=== PATIENT | female | born 1985 | race Caucasian/White ===

== ENCOUNTER 2023-08-10 18:36 | Inpatient (IN) | payer BC ==
--- OUTSIDE RECORDS SUMMARY | 2023-08-10 18:40 | XMS REPORT | Continuity of Care Document ---
Author Name Unknown Address [address] [facility] [address] th[address] Address [address] [facility] [address] [place] [address] Care Team Providers Care Clerk Of [address] Court Name Role Phone [email or web address] Attending Clinician Unavaila ble [email or web address]_S Admitting Clinician Unavaila ble Payers Payer Name Policy Type Policy Number Effective Date Expirati on Date Source [place] [id number] 2021 00:00:00 Encounters Start Date/Time End Date/Time Encounter Type Admission Type Attending Clinicians Care Facility Care Department Encounter ID Source 2023-08-10 00:00:00 2023-08-10 00:00:00 Outpatient GC_[email or web address] diyala_S PRIV PRIV [id number] [facility] 2023-08-05 00:00:00 2023-08-05 00:00:00 Outpatient GC_[email or web address]_Ka diyala_S PRIV PRIV [id number] [facility] 2023-02-15 00:00:00 2023-02-15 00:00:00 Outpatient [email or web address] diyala_S PRIV PRIV [id number] [facility]
--- NOTE | 2023-08-10 19:48 | RAD REPORT ---
EXAM DESCRIPTION: US - Abdomen Exam Limited - 08/10/2023 7:28 pm CLINICAL HISTORY: ABD PAIN COMPARISON: ABDOMINAL EXAM LIMITED dated 09/17/2008 FINDINGS: The gallbladder demonstrates multiple shadowing stones. No pericholecystic fluid or gallbl adder wall thickening. The common bile duct is normal measuring 3 mm. The liver demonstrates no findings of intrahepatic biliary dilatation. IMPRESSION: Cholelithiasis.
[2023-08-10 19:55] LABS: Absolute Lymphocytes (CBC) 0.8 K/uL (0.7-4.9); Hematocrit 42.1 % (36.0-45.0); Lymphocytes % 12.8 % (15.3-44.8); MPV 7.3 fL (7.6-11.3); Platelets 242 thou/uL (152-406); RBC Red Blood Cell Count 4.29 M/uL (3.86-4.86)
[2023-08-10 20:15] LABS: Bilirubin Total 1.8 mg/dL (0.2-1.0); Potassium 3.5 mEq/L (3.5-5.1)
[2023-08-10] MEDS ORDERED: ONDANSETRON 4 MG/2 ML VIAL ONE (20:31)
[2023-08-10] MEDS ORDERED: KETOROLAC 30 MG/ML INJ ONE (20:31)
[2023-08-10] MEDS ORDERED: NA CHLORIDE 0.9% 1,000 ML ONE ×2 (20:32→22:54)
[2023-08-10] MEDS ORDERED: FAMOTIDINE 20 MG/2 ML VIAL IV ONE (20:32)
--- NOTE | 2023-08-10 22:42 | EDPHYS ---
Physician Documentation [facility] Name: Shannan Cardenas Age: 38 yrs Sex: Female : 1985 Arrival Date: 08/10/2023 Time: 18:36 Bed 5 Private MD: ED Physician Phong Calle HPI: 08/10 21:43 This 38 yrs old Female presents to ER via Ambulatory with complaints of Back Pain, kb stomach pain. 21:43 Pt is a 38 year old female who presents with epigastric pain that started at 1300 kb today. Reports nausea. Denies vomiting, diarrhea, fever. States this has happened once before but it went away on its own. Historical: - Allergies: 19:05 No Known Allergies; tl4 - PMHx: 19:05 Hypertensive disorder; tl4 - PSHx: 19:05 gastric sleeve; tl4 - Immunization history:: Adult Immunizations unknown. - Social history:: Smoking status: Patient denies any tobacco usage or history of. ROS: 20:51 Constitutional: Negative for fever, chills, and weight loss, kb 20:51 Abdomen/GI: Positive for abdominal pain, nausea and vomiting, 21:39 All other systems are negative, kb Exam: 21:42 Constitutional: This is a well developed, well nourished patient who is awake, alert, kb and in no acute distress. Head/Face: Normocephalic, atraumatic. ENT: Moist Mucous membranes Cardiovascular: Regular rate Respiratory: Respirations even and unlabored. No increased work of breathing. Talking in full sentences Skin: Warm, dry with normal turgor. Normal color. MS/ Extremity: Pulses equal, no cyanosis. Neurovascular intact. Full, normal range of motion. Neuro: Awake and alert, GCS 15, oriented to person, place, time, and situation. Moves all extremities. Normal gait. 21:42 Abdomen/GI: Inspection: abdomen appears normal, Bowel sounds: normal, Palpation: soft, in all quadrants, moderate abdominal tenderness, in the epigastric area and right upper quadrant, Vital Signs: 19:02 BP 158 / 100; Pulse 75; Resp 16; Temp 98.5(O); Pulse Ox 100% on R/A; Weight 111.13 kg; tl4 Height 5 ft. 8 in. ; Pain 8/10; 20:54 BP 138 / 80; Pulse 66; Resp 18 S; Pulse Ox 97% on R/A; as6 21:45 BP 129 / 80; Pulse 69; Resp 16 S; Pulse Ox 97% on R/A; as6 22:23 BP 125 / 104; Pulse 65; Pulse Ox 99% on R/A; tm6 19:02 Body Mass Index 37.25 (111.13 kg, 172.72 cm) tl4 19:02 Pain Scale: Adult tl4 MDM: 18:55 Patient medically screened. kb 21:42 Differential diagnosis: cholecystitis, Cholelithiasis, gastritis, gastroesophageal kb reflux disease, non-specific abd pain. Data reviewed: vital signs, nurses notes. Management of patient was discussed with the following: Electronic Equipment Set Up Operator: Dr Billingsley, recommends transfer for GI. Pt needs MRCP/ERCP. 22:40 Management of patient was discussed with the following: Electronic Equipment Set Up Operator: Dr Holbrook accepts kb pt for admission. 22:40 Consideration of Admission/Observation Patient was admitted/placed on observation. kb Escalation of care including admission/observation considered. Counseling: I had a detailed discussion with the patient and/or guardian regarding the historical points, exam findings, and any diagnostic results supporting the discharge/admit diagnosis, lab results, radiology results, the need for further work-up and treatment in the hospital. 08/10 19:08 Order name: CBC with Diff; Complete Time: 20:12 kb 08/10 19:08 Order name: CMP; Complete Time: 20:19 kb 08/10 19:08 Order name: Lipase; Complete Time: 20:19 kb 08/10 22:52 Order name: Test, Urine; Complete Time: 23:32 kb 08/10 22:52 Order name: Urinalysis w/ reflexes; Complete Time: 23:32 kb 08/11 04:20 Order name: CBC with Automated Diff; Complete Time: 14:40 EDMS 08/11 04:31 Order name: Basic Metabolic Panel; Complete Time: 14:40 EDMS 08/11 04:31 Order name: Liver (Hepatic) Function; Complete Time: 14:40 EDMS 08/11 04:31 Order name: Lipase; Complete Time: 14:40 EDMS 08/10 19:08 Order name: Abdomen Limited US; Complete Time: 19:56 kb 08/10 22:40 Order name: EKG; Complete Time: 22:40 kb 08/10 19:08 Order name: IV Saline Lock; Complete Time: 19:49 kb 08/10 19:08 Order name: Labs collected and sent; Complete Time: 19:49 kb 08/10 22:40 Order name: EKG - Nurse/Tech; Complete Time: 22:52 kb Administered Medications: 20:37 Drug: NS 0.9% IV 1000 ml IV at 1 bolus Per protocol; 1000 mL bolus Route: IV; Rate: 1 km8 bolus; Site: right antecubital; 23:31 Follow up: Response: No adverse reaction; IV Status: Completed infusion; IV Intake: as6 1000ml 20:37 Drug: Famotidine IVP 20 mg IVP once; dilute with 10 mL 0.9% NaCl; give over 2 minutes km8 Route: IVP; Site: right antecubital; 23:30 Follow up: Response: No adverse reaction as6 20:37 Drug: TORadol - Ketorolac IVP 15 mg IVP once Route: IVP; Site: right antecubital; km8 23:31 Follow up: Response: No adverse reaction as6 20:37 Drug: Ondansetron IVP 4 mg IVP once; over 2 minutes Route: IVP; Site: right antecubital;km8 23:30 Follow up: Response: No adverse reaction as6 22:50 Drug: NS 0.9% IV 1000 ml IV at 125 ml/hr continuous Route: IV; Rate: 125 ml/hr; Site: as6 right antecubital; 23:30 Follow up: Response: No adverse reaction; IV Status: Infusion continued upon admission; as6 IV Intake: 75ml 22:50 Drug: Metoprolol PO 50 mg PO once Route: PO; as6 23:30 Follow up: Response: No adverse reaction as6 23:07 Drug: Piperacillin-Tazobactam IVPB 3.375 grams IVPB once over 60 mins; (mix in NS 100 as6 mL) Route: IVPB; Infused Over: 60 mins; Site: right antecubital; 23:30 Follow up: Response: No adverse reaction; IV Status: Completed infusion; IV Intake: as6 100ml Disposition Summary: 08/10/23 22:41 Hospitalization Ordered Notes: Hospitalization Status: Observation kb Provider: Quirino Holbrook Condition: Stable kb Problem: new kb Symptoms: are unchanged kb Bed/Room Type: Standard kb Location: [facility] ER HOLD(08/11/23 00:05) eb1 Room Assignment: ERHOLD-(08/11/23 00:05) eb1 Diagnosis - Other cholelithiasis without obstruction kb - Abnormal results of liver function studies kb Forms: - Medication Reconciliation Form kb - SBAR form kb - Leadership Thank You Letter kb Signatures: Dispatcher [employer] EDLynda Angel, FLEXO PRESS OPERATOR-C FLEXO PRESS OPERATOR-Vinita David RN RN eb1 Maurice Stephens RN RN as6 Maddie Fatima RN RN km8 Conor Faustin tl4 Corrections: (The following items were deleted from the chart) 08/11 00:05 08/10 22:41 Telemetry/MedSurg (observation) eb1 08/11 00:05 08/10 22:41 kb eb1
--- NOTE | 2023-08-10 22:42 | ER ---
Nurse's Notes [facility] Name: Shannan Cardenas Age: 38 yrs Sex: Female : 1985 Arrival Date: 08/10/2023 Time: 18:36 Bed 5 Private MD: Diagnosis: Other cholelithiasis without obstruction;Abnormal results of liver function studies Presentation: 08/10 19:02 Chief complaint: Patient states: Pt c/o sudden onset of constant, sharp upper abdominal tl4 pain that radiates into her back since 1300 today. Coronavirus screen: At this time, the client does not indicate any symptoms associated with coronavirus-19. Ebola Screen: No symptoms or risks identified at this time. Initial Sepsis Screen: Does the patient meet any 2 criteria? No. Patient's initial sepsis screen is negative. Does the patient have a suspected source of infection? No. Patient's initial sepsis screen is negative. Risk Assessment: Do you want to hurt yourself or someone else? Patient reports no desire to harm self or others. Onset of symptoms was August 10, 2023 at 13:00. 19:02 Method Of Arrival: Ambulatory tl4 19:02 Acuity: OBED 3 tl4 Triage Assessment: 19:06 General: Appears uncomfortable, Behavior is calm, cooperative. Pain: Complains of pain tl4 in abdomen Pain radiates to back Quality of pain is described as sharp, shooting. EENT: No deficits noted. No signs and/or symptoms were reported regarding the EENT system. Neuro: No deficits noted. Cardiovascular: No deficits noted. Denies chest pain, diaphoresis, fatigue, lightheadedness, nausea, palpitations. Respiratory: No deficits noted. Denies cough, shortness of breath. GI: Reports upper abdominal pain, Patient currently denies diarrhea, nausea, vomiting. : No deficits noted. No signs and/or symptoms were reported regarding the genitourinary system. Musculoskeletal: Circulation, motion, and sensation intact. Capillary refill < 3 seconds, Range of motion:. Historical: - Allergies: 19:05 No Known Allergies; tl4 - PMHx: 19:05 Hypertensive disorder; tl4 - PSHx: 19:05 gastric sleeve; tl4 - Immunization history:: Adult Immunizations unknown. - Social history:: Smoking status: Patient denies any tobacco usage or history of. Screenin:45 [facility] ED Fall Risk Assessment (Adult) Score/Fall Risk Level 0 - 2 = Low Risk. Abuse as6 screen: Denies threats or abuse. Denies injuries from another. Nutritional screening: No deficits noted. Tuberculosis screening: No symptoms or risk factors identified. Assessment: 21:45 Reassessment: Patient appears in no apparent distress at this time. warm blanket given, as6 no other complaints or concerns at this time. 22:23 Reassessment: Patient appears in no apparent distress at this time. No changes from tm6 previously documented assessment. Patient and/or family updated on plan of care and expected duration. Pain level reassessed. Vital Signs: 19:02 BP 158 / 100; Pulse 75; Resp 16; Temp 98.5(O); Pulse Ox 100% on R/A; Weight 111.13 kg; tl4 Height 5 ft. 8 in. ; Pain 8/10; 20:54 BP 138 / 80; Pulse 66; Resp 18 S; Pulse Ox 97% on R/A; as6 21:45 BP 129 / 80; Pulse 69; Resp 16 S; Pulse Ox 97% on R/A; as6 22:23 BP 125 / 104; Pulse 65; Pulse Ox 99% on R/A; tm6 19:02 Body Mass Index 37.25 (111.13 kg, 172.72 cm) tl4 19:02 Pain Scale: Adult tl4 ED Course: 18:37 Patient arrived in ED. ra3 18:55 Lynda Renee, SHERLYN is [facility]. kb 18:55 Phong Calle MD is Attending Physician. kb 19:05 Triage completed. tl4 19:06 Arm band placed on left wrist. tl4 19:30 Abdomen Limited US In Process Unspecified. EDMS 19:49 CBC with Diff Sent. km8 19:49 CMP Sent. km8 19:49 Lipase Sent. km8 19:49 Inserted saline lock: 22 gauge in right antecubital area, using aseptic technique. km8 Blood collected. 21:44 Maurice Stephens, RN is Primary Nurse. as6 21:45 Bed in low position. Call light in reach. Side rails up X 1. as6 22:20 Initiated transfer to [facility], spoke Abigail Romero. 22:33 Called transfer center spoke with Abril, cancelled transfer per MANAGER COMPLIANCE Lynda Renee wm request. 22:41 Quirino Holbrook MD is Hospitalizing Provider. kb 23:31 Provided Education on: need for admit. as6 23:31 No provider procedures requiring assistance completed. Patient admitted, IV remains in as6 place. Administered Medications: 20:37 Drug: NS 0.9% IV 1000 ml IV at 1 bolus Per protocol; 1000 mL bolus Route: IV; Rate: 1 km8 bolus; Site: right antecubital; 23:31 Follow up: Response: No adverse reaction; IV Status: Completed infusion; IV Intake: as6 1000ml 20:37 Drug: Famotidine IVP 20 mg IVP once; dilute with 10 mL 0.9% NaCl; give over 2 minutes km8 Route: IVP; Site: right antecubital; 23:30 Follow up: Response: No adverse reaction as6 20:37 Drug: TORadol - Ketorolac IVP 15 mg IVP once Route: IVP; Site: right antecubital; km8 23:31 Follow up: Response: No adverse reaction as6 20:37 Drug: Ondansetron IVP 4 mg IVP once; over 2 minutes Route: IVP; Site: right antecubital;km8 23:30 Follow up: Response: No adverse reaction as6 22:50 Drug: NS 0.9% IV 1000 ml IV at 125 ml/hr continuous Route: IV; Rate: 125 ml/hr; Site: as6 right antecubital; 23:30 Follow up: Response: No adverse reaction; IV Status: Infusion continued upon admission; as6 IV Intake: 75ml 22:50 Drug: Metoprolol PO 50 mg PO once Route: PO; as6 23:30 Follow up: Response: No adverse reaction as6 23:07 Drug: Piperacillin-Tazobactam IVPB 3.375 grams IVPB once over 60 mins; (mix in NS 100 as6 mL) Route: IVPB; Infused Over: 60 mins; Site: right antecubital; 23:30 Follow up: Response: No adverse reaction; IV Status: Completed infusion; IV Intake: as6 100ml Medication: 21:45 VIS not applicable for this client. as6 Intake: 23:30 IV: 100ml; Total: 100ml. as6 23:30 IV: 75ml; Total: 175ml. as6 23:31 IV: 1000ml; Total: 1175ml. as6 Outcome: 22:41 Decision to Hospitalize by Provider. kb 23:31 Admitted to ER Hold. Please see [facility] for further documentation. as6 23:31 Condition: stable 23:31 Instructed on the need for admit, 08/11 12:31 Patient left the ED. ld1 Signatures: Dispatcher [employer] EDMS Lynda Renee, SHAKILAC MERCHANDISE DISTRIBUTOR-Valencia Mauricio RN RN ld1 Estrella Conteh Ashby, RN RN as6 Maddie Fatima, RN RN km8 Bienvenido Lopez, RN RN tm6 Conor Faustin 4 Debbi Pedraza 3
[2023-08-10] MEDS ORDERED: METOPROLOL XL 50 MG TAB PO ONE (22:54)
[2023-08-10] MEDS ORDERED: PIPERACIL/TAZO 3.375 GM VIAL IV ONE (23:01)
[2023-08-10] MEDS ORDERED: NA CHLORIDE 0.9% 100 ML ONE (23:01)
[2023-08-10] MEDS: NA CHLORIDE 0.9% 1,000 ML IV SCH (23:24)
[2023-08-10 23:30] LABS: Specific Gravity 1.023 (1.005-1.030)
[2023-08-10 23:31] VITALS: BMI 37.2
[2023-08-10 23:31] LABS: Specific Gravity 1.023 (1.005-1.030); Urine Bacteria <20 /HPF (<20); Urine Bilirubin NEGATIVE (Negative); Urine Blood Negative (Negative); Urine Clarity Extremely Turbid (Clear); Urine Color Yellow (Yellow); Urine Glucose NEGATIVE (Negative); Urine Mucus 3+ /HPF (None Seen); Urine Protein TRACE (Negative); Urine RBC None Seen /HPF (None Seen); Urine Urobilinogen Normal (Normal)
[2023-08-11] MEDS: PIPER TAZO 3.375 GM in NA CHLORIDE 0.9% 100 ML IV SCH ×3 (01:00→17:52)
[2023-08-11 04:16] LABS: Absolute Lymphocytes (CBC) 1.1 K/uL (0.7-4.9); Hematocrit 35.9 % (36.0-45.0); Lymphocytes % 24.4 % (15.3-44.8); MCV 97.3 fL (80-100); MPV 7.3 fL (7.6-11.3); Platelets 205 thou/uL (152-406); RBC Red Blood Cell Count 3.69 M/uL (3.86-4.86)
[2023-08-11 04:25] LABS: Albumin 3.1 g/dL (3.4-5.0); Bilirubin Direct 0.4 mg/dL (0-0.2); Bilirubin Indirect, Calculated 0.9 mg/dL (0.2-0.8); Bilirubin Total 1.3 mg/dL (0.2-1.0); Potassium 3.5 mEq/L (3.5-5.1); Protein, Total 6.2 g/dL (6.4-8.2)
[2023-08-11] MEDS: NA CHLORIDE 0.9% 1,000 ML IV SCH ×3 (07:24→23:24)
[2023-08-11] MEDS ORDERED: INFLUENZA VACCINE (for 6+ mo) 0.5 ML DOSE IMVAC ONE (08:00)
[2023-08-11] MEDS ORDERED: PIPERACIL/TAZO 3.375 GM VIAL IV ONE (08:05)
[2023-08-11] MEDS ORDERED: NA CHLORIDE 0.9% 0 ML ONE (08:05)
[2023-08-11] MEDS ORDERED: NA CHLORIDE 0.9% 1,000 ML ONE (08:06)
[2023-08-11] MEDS ORDERED: propofoL 200 MG/20 ML VIAL IV ONE ×2 (12:47→15:19)
[2023-08-11] MEDS ORDERED: LIDOCAINE 2% MPF 5 ML VIAL ONE (12:47)
[2023-08-11] MEDS ORDERED: MIDAZOLAM HCL 2 MG/2 ML INJ ONE (12:47)
[2023-08-11] MEDS ORDERED: ONDANSETRON 4 MG/2 ML VIAL ONE (12:47)
[2023-08-11] MEDS ORDERED: FENTANYL CITR 100 MCG/2 ML ONE ×2 (12:47→13:56)
[2023-08-11] MEDS ORDERED: ROCURONIUM 50 MG/5 ML VIAL IV ONE ×2 (12:47→15:19)
[2023-08-11] MEDS ORDERED: HYDROMORPHONE HCL 1 MG/ML INJ ONE ×3 (13:11→17:01)
[2023-08-11] MEDS ORDERED: dexAMETHasone 10 MG/ML VIAL ONE (13:26)
[2023-08-11] MEDS ORDERED: Ringers Lactate 1,000 ML IV ONE (14:20)
[2023-08-11] MEDS ORDERED: NEOSTIGMINE 1 MG/ML -10 ML VIAL ONE (16:03)
[2023-08-11] MEDS ORDERED: GLYCOPYRROLATE 0.2 MG/ML SYR ONE (16:03)
--- NOTE | 2023-08-11 16:58 | RAD REPORT ---
EXAM DESCRIPTION: RADCholangiogram Oper-Xray Or08/11/2023 4:36 pm CLINICAL HISTORY: Abdominal pain FINDINGS: The examination was performed by Dr. Holbrook. The cystic duct was cannulated and contrast administered. Contrast flowed into the duodenum. The biliary tree is normal caliber without a filling defect seen. Two fluoroscopic spot images obtained. Fluoroscopy time 0.4 minutes
--- NOTE | 2023-08-11 16:59 | P.HP ---
Date of Service: 08/11/23 PC: This 38-year-old female presented to emergency room with severe right upper quadrant abdominal pain for diagnosis and treatment. HPC: Patient was at home, off-and-on over the last month or 2 she was having some abdominal pain however yesterday she had a very strong attack, located the right upper quadrant, went straight through to her back. Describes it as pain almost as bad as labor pain. Had some nausea and vomiting with it, brought to the emergency room for evaluation. PSHx: Previous gastric bypass surgery [has lost over 100 pounds] PMHx: Hypertension Social Hx: No known allergies Sys R: No cough, wheeze, shortness of breath. No chest pain or palpitations. Denies any urinary complaints. Says she has good exercise tolerance. O/E: Awake alert vital signs are stable HEENT: Not jaundiced Chest: Air entry equal bilaterally Abd: Tender in the right upper quadrant [place]: Intact Data: Elevated liver enzymes, has documented stones on ultrasound Impression: Acute on chronic cholecystitis with cholelithiasis, biliary colic, possible choledocholithiasis Plan: I will taken the operating room for laparoscopic possible open cholecystectomy. We will also do a cholangiogram at that time. Should we find a stone in the common duct we will do a laparoscopic common bile duct exploration with possible stone removal. The risks of this procedure have been discussed with the patient. The possible bleeding, infection, injury to bowel is blood vessels and intestines has been described. The possible need for an open and or further surgeries and procedures was discussed. She understands and wants us to proceed.
[2023-08-11] MEDS ORDERED: HYDROCODONE/APAP 7.5/325 MG TAB PO PRN (17:02)
[2023-08-11] MEDS: ONDANSETRON 4 MG/2 ML VIAL IV PRN (18:34)
[2023-08-11] MEDS: HYDROCODONE/APAP 7.5/325 MG TAB PO PRN (18:40)
[2023-08-11] MEDS: MORPHINE 4 MG/ML SYR IV PRN (19:56)
[2023-08-12] MEDS: HYDROCODONE/APAP 7.5/325 MG TAB PO PRN ×3 (00:36→20:45)
[2023-08-12] MEDS: PIPER TAZO 3.375 GM in NA CHLORIDE 0.9% 100 ML IV SCH ×3 (02:00→18:05)
[2023-08-12] MEDS: MORPHINE 4 MG/ML SYR IV PRN ×3 (02:21→18:05)
[2023-08-12] MEDS: NA CHLORIDE 0.9% 1,000 ML IV SCH ×2 (09:00→18:05)
--- NOTE | 2023-08-12 13:27 | EKG ---
Test Date: 2023-08-10 Test Time: 22:49:55 Manager Construction: MEASUREMENT RESULTS: Intervals: Rate: 66 KS: 224 QRSD: 104 QT: 406 QTc: 425 [place]: P: 40 KS: 224 QRS: 61 T: 20 INTERPRETIVE STATEMENTS: Sinus rhythm with 1st degree AV block Otherwise normal ECG No previous ECG available for comparison Electronically Signed On 08-12-23 13:22:56 RIGGER SUPERVISOR by Mitchell Coon
--- NOTE | 2023-08-12 14:18 | P.PN ---
Date of Service: 08/12/23 S: Patient feels well today, is up ambulating in the hallway. Patient says her initial presenting complaint appears to be gone, obviously sore from open procedure yesterday. But overall feels much better. O: Incision is clean, minimal out through the ANCA drain. Has been able to tolerate full liquids today. Pain is becoming more manageable. A: Surgically stable status post lap converted to open cholecystectomy P: Encourage patient to use incentive spirometry. Continue to ambulate. SCDs while patient is in bed. Transition to oral pain medication. Anticipate discharge in a.m.
[2023-08-12] MEDS: ONDANSETRON 4 MG/2 ML VIAL IV PRN (18:12)
[2023-08-13] MEDS: PIPER TAZO 3.375 GM in NA CHLORIDE 0.9% 100 ML IV SCH ×2 (00:36→08:42)
[2023-08-13] MEDS: MORPHINE 4 MG/ML SYR IV PRN (00:36)
[2023-08-13] MEDS: HYDROCODONE/APAP 7.5/325 MG TAB PO PRN ×2 (05:38→11:33)
[2023-08-13] MEDS: NA CHLORIDE 0.9% 1,000 ML IV SCH ×2 (05:39→07:24)
[2023-08-13 11:11] VITALS: O2SAT 95
--- NOTE | 2023-08-13 13:38 | P.DS ---
Admission Date: 08/12/23 Discharge Date: 08/13/23 Disposition: ROUTINE DISCHARGE Discharge Condition: GOOD Reason for Admission: Acute postoperative abdominal pain Procedures: Laparoscopic converted to open cholecystectomy with cholangiogram. Brief History of Present Illness: Patient started having severe right upper quadrant abdominal pain, radiating to her back. Pain was as bad as labor pain, so she came to the emergency room for evaluation and treatment. Hospital Course: The patient presented to the emergency room with severe right upper quadrant abdominal pain. On workup was found to have cholecystitis with cholelithiasis. She also had elevated liver enzymes. She was brought to the operating room for laparoscopic cholecystectomy for acute on chronic cholecystitis with possible choledocholithiasis. At the time of surgery it was found that she had a marked amount of adhesions in the upper portion of her abdomen. This precluded us from proceeding safely with a straight laparoscopic cholecystectomy. It was converted to an open procedure. After having mobilized all the adhesions in the anterior abdominal wall, we were now able to close just the skin, and continue to do the surgery laparoscopically. The cholangiogram turned out to be normal. The gallbladder having been removed, was sent for histopathology. The surgical incision was then closed in layers. And a drain was placed. The following the day the patient was feeling much better as far as her right upper quadrant abdominal pain, but was having considerable discomfort from her incision. She was slow to ambulate and had suboptimal results on her incentive spirometry. She was encouraged to ambulate, we regulated her pain medication, and today she is up ambulating, tolerating a diet. She had minimal output through her Víctor-Milian drain and it was removed today. She has good efforts on her incentive spirometry, her pain is controlled, and she is adequate p.o. intake., She is deemed fit for discharge. Vital Signs/Physical Exam: Temp Pulse Resp BP Pulse Ox 98.3 F 77 14 132/70 97 08/13/23 12:00 08/13/23 12:00 08/13/23 12:00 08/13/23 12:08/13/23 12:00 Gastrointestinal: Other (Surgical incision is clean. Evonne intact. Drain site looks good. Umbilicus negative.) Laboratory Data at Discharge: WBC 4.70 thou/uL (4.3-10.9) 08/11/23 03:58 Hgb 12.7 g/dL (12.0-15.0) D 08/11/23 03:58 Hct 35.9 % (36.0-45.0) L 08/11/23 03:58 Plt Count 205 thou/uL (152-406) 08/11/23 03:58 Sodium 139 mEq/L (136-145) 08/11/23 03:58 Potassium 3.5 mEq/L (3.5-5.1) 08/11/23 03:58 BUN 10 mg/dL (7-18) 08/11/23 03:58 Creatinine 0.59 mg/dL (0.55-1.02) 08/11/23 03:58 Glucose 96 mg/dL (74-106) 08/11/23 03:58 Total Bilirubin 1.3 mg/dL (0.2-1.0) H 08/11/23 03:58 AST 209 U/L (15-37) H 08/11/23 03:58 ALT 205 U/L (13-56) H 08/11/23 03:58 Alkaline Phosphatase 58 U/L (45-117) 08/11/23 03:58 Lipase 19 U/L (13-75) 08/11/23 03:58 Home Medications: Amlodipine Besylate 5 mg PO DAILY 03/07/12 Metoprolol Tartrate 50 mg PO BID 03/07/12 Physician Discharge Instructions: DC IV, DC home. Change dressing as needed. Ambulated home. Continue incentive spirometry PT. Keep well-hydrated. Pain medicine as needed. Milk of magnesia as needed. You may shower. See me on Wednesday, call on Wednesday for an appoint ment. Any questions or problems, go to the emergency room, or contact my office. Diet: Regular Activity: Ad gera Followup: Natalio Mckeon MD [Primary Care Provider] -
[2023-08-13 15:01] LABS: Albumin 2.9 g/dL (3.4-5.0); Bilirubin Direct 0.3 mg/dL (0-0.2); Bilirubin Indirect, Calculated 0.5 mg/dL (0.2-0.8); Bilirubin Total 0.8 mg/dL (0.2-1.0); Protein, Total 6.1 g/dL (6.4-8.2)
[2023-08-13 16:09] VITALS: BP 144/77; TEMP 98.1
== END 2023-08-13 16:00 | disposition home or self-care (01) | DRG 416 ==
LOC: ER 18:36 → ERHOLD 22:57 → 2ND 08-11 14:08 → OBSVTOIN 08-12 15:17
PROVIDERS: ADMIT Surgery; ATTEND Surgery
PROC: 0FT40ZZ Resection of Gallbladder, Open Approach (ICD-10-PCS; principal; 2023-08-12)
PROC: 0FJ44ZZ Inspection of Gallbladder, Percutaneous Endoscopic Approach (ICD-10-PCS; 2023-08-12)
PROC: BF121ZZ Fluoroscopy of Gallbladder using Low Osmolar Contrast (ICD-10-PCS; 2023-08-12)
DX: K80.12 Calculus of gallbladder with acute and chronic cholecystitis without obstruction (principal); I10 Essential (primary) hypertension; R94.5 Abnormal results of liver function studies; Z98.84 Bariatric surgery status; Z53.31 Laparoscopic surgical procedure converted to open procedure
CPT/HCPCS: 31720; 36415; 74300; 76705; 80048; 80053; 80076; 81001; 81025; 83690; 85025; 88304; 93005; 94010; G0378; J1100; J1170; J2001; J2250; J2405; J2543; J2704; J2710; J3010; J7030; J7120